=== PATIENT | male | born 1995 | race Asian ===

== ENCOUNTER 2025-01-30 10:54 | Outpatient (AMB) | payer BC, SELFPAY ==
--- NOTE | 2025-01-30 10:56 | A.OFFPC_ITS ---
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 Hypertension: The patient's blood pressure was measured at 184/130 mmHg during the visit. He has never been told he has elevated blood pressure. He reports drinking a significant amount of coffee daily but denies smoking or drug use. Health Maintenance: The patient has not seen a doctor in approximately 12 years and is establishing care. He reports no past medical history, no prior surgeries, hospitalizations, or known drug allergies. He takes no medications. Family history is negative for cancer in immediate relatives. 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 Surgical History: - No history of surgeries reported. Medications: - The patient reports taking no medicati ons. 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 - Substance Use: Denies smoking and illi cit drug use. - Reports consuming alcohol socially. - Reports drinking a lot of coffee daily and having stopped drinking energy drinks about two years ago. - Sexual History: Reports not being sexu ally active. Family History: - Denies history of cancer in immediate family members (mother, father, brother, sister). Past Medical History - The patient reports no known past medi stacie history. - He has not had a checkup in [facility] 12 years. - History of acne with residual facial s carring. Health Maintenance - Ordered baseline laboratory tests, inc luding a CBC, CMP, lipids, HbA1c, vitamin B12, folate, vitamin D, thyroid panel, and screenings for HIV, hepatitis B, hepatitis C, and syphilis. - The patient was informed that fasting is not required for the blood work. - Scheduled a follow-up appointment in t wo weeks to review the blood pressure log and all lab results. [facility] Medical History (Updated 01/30/25 @ 11:24 by Mason Fall MD) Hypertension Family History (Updated 01/30/25 @ 10:57 by Jesi Michaels CMA) Mother No problems noted. Father No problems noted. Social History Housing: Apartment Patient Tobacco Use Status: Never used Tobacco e-Cigarette/Vaping Use: Never Used service: No Current occupational status: employed Cognitive needs: No Hearing needs: No Vision needs: Yes (glasses) Questionnaire PHQ-9 Over the last 2 weeks, how often have you been bothered by any of the following problems? 1. Little interest or pleasure in doing things: not at all 2. Feeling down, depressed, or hopeless: not at all 3. Trouble falling or staying asleep, or sleeping too much: not at all 4. Feeling tired or having little energy: not at all 5. Poor appetite or overeating: not at all 6. Feeling bad about yourself - or that you are a failure or have let yourself or your family down: not at all 7. Trouble concentrating on things, such as reading the newspaper or watching television: not at all 8. Moving or speaking so slowly that other people could have noticed. Or the opposite - being so fidgety or restless that you have been moving around a lot more than usual: not at all 9. Thoughts that you would be better off or of hurting yourself in some way: not at all Total score: 0 Depression Screening Interpretation: Negative Depression Screening Done: Yes Source: Developed by Drs. Sukumar Barriga, Daisy Anna, Dionte Hsu and colleagues, with an educational donny from [employer]. Thrive Questionnaire Date Thrive assessed: 01/30/25 I am a: Patient What is your living situation today?: I have a steady place to live Within the past 12 months, did the food you bought not last and you didn't have the money to get more?: Never true Within the past 12 months, did you worry whether your food would run out before you got money to buy more?: Never true Do you have trouble paying for medicines?: No Do you have trouble getting transportation to medical appointments?: No Do you have trouble paying your heating and electricity bill?: No Do you have trouble taking care of your child, family member or friend?: No Are you currently unemployed and looking for a job?: No Are you interested in more education?: No Please select the resources that you would like help with: None Currently or been in a relationship where the following occur: No concerns reported THRIVE Score: 0 AUDIT C Alcohol Use Questionnaire (AUDIT-C) 1. How often do you have a drink containing alcohol?: Monthly or less 2. How many drinks containing alcohol do you have on a typical day when you are drinking?: 3 or 4 3. How often do you have six or more drinks on one occasion?: Never Total Score: 2 MYLES-7 AMB Questionnaire MYLES-7 Date MYLES - 7 assessed: 01/30/25 Feeling nervous, anxious, or on edge: 0 = Not at all Not being able to stop or control worryin = Not at all Worrying too much about different things: 0 = Not at all Trouble relaxin = Not at all Being so restless that it is hard to sit still: 0 = Not at all Becoming easily annoyed or irritable: 0 = Not at all Feeling afraid as if something awful might happen: 0 = Not at all Total MYLES-7 score (0-4 normal; 5-9 mild; 10-14 moderate; 15-21 severe): 0 Source: Developed by Drs. Sukumar Barriga, Daisy Anna, Dionte Hsu and colleagues, with an educational donny from [employer]. Review of Systems Narrative Review of Systems - Constitutional: Reports oversleeping but feels well otherwise. - Gastrointestinal: Reports good bowel function. - Genitourinary: Reports good bladder function. - Extremities: Denies swelling in his lower legs. - Dermatologic: Reports occasional acne flare-ups when stressed. 10-point ROS reviewed and negative except as noted in HPI Physical exam (Primary Care) Vital Signs: Last Vital Signs Temp 98.6 F 01/30/25 11:01 Pulse 105 H 01/30/25 11:01 BP 184/130 H 01/30/25 11:01 Pulse Ox 97 01/30/25 11:01 Oxygen Delivery Method Room Air 01/30/25 11:01 BMI result Body Mass Index 27.3 Tobacco/Smoking Status: Tobacco use Status Tobacco use date assessed 01/30/25 01/30/25 10:58 Patient Tobacco Use Status Never used Tobacco 01/30/25 10:58 e-Cigarette/Vaping Use Never Used 01/30/25 10:58 PHQ-9: PHQ-9 Score PHQ-9: Total score 0 01/30/25 11:13 Depression Screening Interpretation: Negative Thrive Assessment: Date of Thrive Assessment Date Thrive assessed 01/30/25 01/30/25 10:58 Currently or been in a relationship where the following occur: No concerns reported Narrative Physical Exam General: Well-appearing, in no acute distress. Vital signs: Blood pressure is elevated at 184/130. Pulse is elevated at 105. HEENT: Normocephalic, atraumatic. PERRLA, EOMI. Conjunctiva clear, sclera anicteric. Oropharynx clear, mucous membranes moist. TMs intact bilaterally. Acne scars noted on the left cheek and a little on the right. Neck: Supple, no lymphadenopathy, no thyromegaly, no JVD or carotid bruits. Cardiovascular: RRR, normal S1/S2, no murmurs, rubs, or gallops. Peripheral pulses 2+ and symmetric. No edema. Respiratory: Lungs clear to auscultation bilaterally, no wheezes, rales, or rhonchi. Normal effort. Abdomen: Soft, non-tender, non-distended. Normoactive bowel sounds. No hepatosplenomegaly, no masses. MSK: Full range of motion, no joint swelling or deformity. Normal gait. Skin: Warm, dry, intact. No rashes, lesions, or pallor. Acne scars noted on the left cheek and a little on the right. Neuro: Alert and oriented x3. Cranial nerves II-XII intact. Strength 5/5 throughout. Sensation intact. Reflexes 2+ symmetric. Normal coordination and gait. Psych: Appropriate mood and affect. Normal judgment and insight. 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 Plan 1. Hypertension - The patient's blood pressure was significantly elevated at 184/130 mmHg during the office visit. - Provided a prescription for a home blood pressure cuff to monitor readings outside the clinical setting. - Instructed the patient to keep a two-week blood pressure log, checking twice daily (morning and evening) to evaluate for sustained hypertension before initiating antihypertensive medication. Discussion Notes I discussed the patient's significantly elevated blood pressure of 184/130 mmHg and pulse of 105 bpm, explaining the difference between the systolic and diastolic numbers and my concern regarding the high resting pressure. We reviewed his lifestyle, including his high caffeine intake. I explained the plan to confirm a diagnosis of hypertension through home monitoring before starting any medication. I provided detailed instructions for using the blood pressure cuff and maintaining a log for two weeks. I also informed him about the baseline lab work being ordered, which includes a complete blood count, comprehensive metabolic panel, hemoglobin A1c, lipids, vitamins, and screenings for various infectious diseases. I advised him to follow up in two weeks to review the blood pressure log and lab results. Patient Instructions - supervisor glycerin the prescribed blood pressure cuff from the pharmacy. - Check your blood pressure twice daily (once in the morning, once at night) for the next two weeks. - Before checking your blood pressure, sit and relax for 5-10 minutes in a chair with back support, with your feet flat on the ground and your arm at heart level. - Each time, take three readings and record the best one in a log to bring to your next appointment. - Go to the lab to have your blood drawn for the ordered tests; you do not need to fast beforehand. - Return for your follow-up appointment in two weeks to go over your results. Medical Decision Making The patient is a 30-year-old male establishing care after not seeing a physician for 12 years. The initial examination is notable for significantly elevated blood pressure of 184/130 mmHg and tachycardia of 105 bpm. Given this is a single reading in a patient who reports high daily caffeine intake, the diagnosis of chronic hypertension requires confirmation. The decision was made to defer antihypertensive medication pending a two-week period of home blood pressure monitoring to rule out white coat effect and establish a pattern of sustained hypertension. Comprehensive baseline labs, including CBC, CMP, HbA1c, lipids, thyroid function, and infectious disease screening, were ordered to get a complete picture of the patient's health status and screen for potential secondary causes or end-organ effects of hypertension. A follow-up in two weeks is necessary to review the blood pressure log and lab results to guide further management. Total Time Statement 30 min Total time spent caring for the patient today includes pre-visit chart review, documentation, review of laboratory and diagnostic imaging results, medication reconciliation, medically necessary evaluation, counseling on diagnoses, care coordination, ordering appropriate tests and medications, review of tests performed by other providers, reporting test results to the patient, and communication with other healthcare providers. Orders: Orders Syphilis Screen Today Z13.9 - Encounter for screening, unspecified Comprehensive Met. Panel Today Z13.9 - Encounter for screening, unspecified Hepatitis C Antibody Today Z13.9 - Encounter for screening, unspecified TSH reflex Free T4 Today Z13.9 - Encounter for screening, unspecified UA CC w/rflx Micro + Cult Today Z13.9 - Encounter for screening, unspecified Lipid Panel Today Z13.9 - Encounter for screening, unspecified Hemoglobin A1c Today Z13.9 - Encounter for screening, unspecified Hepatitis B Surface Antibody Today Z13.9 - Encounter for screening, unspecified Influenza [id number] Immunization Today Z23 - Encounter for immunization Complete Blood Count Auto Diff Today Z13.9 - Encounter for screening, unspecified Hepatitis B Surface Antigen Today Z13.9 - Encounter for screening, unspecified HIV Ab/Ag Today Z13.9 - Encounter for screening, unspecified Vitamin B12 and Folate Today Z13.9 - Encounter for screening, unspecified Magnesium Today Z13.9 - Encounter for screening, unspecified Vitamin D 25-OH (D2 and D3) Today Z13.9 - Encounter for screening, unspecified Medications: New Fluarix [id number] (PF) (flu vac ts (6mos up)-PF) 0.5 mL IM ONCE 0.5 mL 0RF NS Z23 - Encounter for immunization [blood pressure kit] As directed 1 ea 0RF I10 - Essential (primary) hypertension
[2025-01-30 11:01] VITALS: BP 184/130; PULSE 105; TEMP 37; O2SAT 97; BMI 27.3
== END 2025-01-30 11:21 | disposition home or self-care (01) ==
LOC: HO.HMCFMS 10:55
PROVIDERS: Visit Provider Student in an Organized Health Care Education/Training Program
DX: I10 Essential (primary) hypertension (principal); G47.26 Circadian rhythm sleep disorder, shift work type; L90.5 Scar conditions and fibrosis of skin; R00.0 Tachycardia, unspecified; E66.3 Overweight

== ENCOUNTER 2025-01-30 10:54 | Outpatient (REF) | payer BC, SELFPAY ==
[2025-01-30 13:53] LABS: MANUAL DIFF FLAG NO
[2025-01-30 14:15] LABS: Hematocrit 49.3 % (42.0-52.0); Hemoglobin 16.8 g/dl (14.0-18.0); Imm Gran Abs Auto 0.02 X10*3/uL (0.00-0.03); Imm Gran Pct Auto 0.2 % (0.0-0.4); Lymphocytes Absolute Auto 3.9 X10*3/uL (1.2-4.9); Mean Corpuscular HGB Conc 34.1 g/dl (31.0-36.0); Mean Corpuscular Hemoglobin 29.4 pg (27.0-33.0); Mean Corpuscular Volume 86.2 fL (80.0-98.0); NRBC Abs Auto 0.000 X10*3/uL (0.0-0.012); NRBC Pct Auto 0.0 /100WBC (0.0-0.2); Platelet Count 406 X10*3/uL (160-400); Red Blood Count 5.72 X10*6/uL (4.60-5.80); White Blood Count 8.8 X10*3/uL (4.8-10.8)
[2025-01-30 14:16] LABS: Appearance Urine Clear; Glucose Urine UA Negative (Negative); PH 6.5 (5.0-9.0); Specific Gravity - Urine 1.015 (1.005-1.025); UMIC TRIGGER UACC YES
[2025-01-30 15:17] LABS: Folate 6.5 ng/mL (> or = 4.0); Vitamin B12 421 pg/mL (200-900)
[2025-01-30 16:55] LABS: Albumin Level 4.9 g/dL (3.5-5.0); Alkaline Phosphatase 95 U/L (39-117); Anion Gap 14 (12-20); Aspartate Amino Transferase 51 U/L (5-37); Blood Urea Nitrogen 14 mg/dL (9-16); Calcium 10.8 mg/dL (8.4-10.2); Carbon Dioxide 26 mmol/L (22-29); Chloride 108 mmol/L (96-108); Cholesterol 209 mg/dL (<200); Estimated Glomerular Filt Rate > 60; HDL Cholesterol 35 mg/dL (>40); Magnesium 2.0 mg/dL (1.6-2.6); Potassium 3.7 mmol/L (3.3-5.1); Sodium 144 mmol/L (135-145); Total Protein 8.6 g/dL (6.5-8.0); Triglycerides 419 mg/dL (<150)
[2025-01-30 17:13] LABS: Alanine Aminotransferase 89 U/L (0-40)
[2025-01-30 17:25] LABS: Free T4 (Free Thyroxine) 1.21 ng/dL (0.71-1.85)
[2025-01-31 03:49] LABS: Syphilis Screen Nonreactive (Nonreactive)
[2025-01-31 04:09] LABS: HBS Num1 0.09 mIU/mL (0-7.99); HBsAGNum1 0.41 S/CO (0.00-0.99); HIV Num 1 0.09 S/CO (0.00-0.99); Hepatitis B Surface Antigen Negative (Negative); ~HepC Num1 0.15 S/CO (0.00-0.79); ~Hepatitis B Surface Antibody NONREACTIVE (Nonreactive); ~Hepatitis C Antibody Nonreactive (Nonreactive)
[2025-02-04 06:43] LABS: Vitamin D 25-OH, D2 <4 ng/mL; Vitamin D 25-OH, D3 10 ng/mL; Vitamin D 25-OH, Total 10 ng/mL (30-100)
== END 2025-01-30 10:55 | disposition home or self-care (01) ==
LOC: HO.HKASLDS 10:54
PROVIDERS: PCP Student in an Organized Health Care Education/Training Program; Visit Provider Student in an Organized Health Care Education/Training Program
DX: Z13.31 Encounter for screening for depression (principal); Z13.39 Encounter for screening examination for other mental health and behavioral disorders; I10 Essential (primary) hypertension; G47.26 Circadian rhythm sleep disorder, shift work type; R00.0 Tachycardia, unspecified; E66.3 Overweight; Z13.1 Encounter for screening for diabetes mellitus
CPT/HCPCS: 36415; 80053; 80061; 81001; 81003; 82306; 82607; 82746; 83036; 83735; 84439; 84443; 85025; 86706; 86780; 86803; 87340; 87389; 96127